=== PATIENT | male | born 1950 | race Caucasian/White ===

== ENCOUNTER → 2023-09-04 15:46 | Outpatient (REF) | payer MEDICARE, SELFPAY | LOC: RAD 15:46 | PROVIDERS: ATTENDING PHYSICIAN Physician Assistant | DX: G89.29 Other chronic pain (principal); M54.50 Low back pain, unspecified | CPT/HCPCS: 72110 ==

== ENCOUNTER → 2023-09-05 09:20 | Outpatient (REF) | payer MEDICARE, SELFPAY | LOC: RCS 09:20 | PROVIDERS: ATTENDING PHYSICIAN Internal Medicine Cardiovascular Disease; FAMILY PHYSICIAN Family Medicine | DX: I25.10 Atherosclerotic heart disease of native coronary artery without angina pectoris (principal); Z01.810 Encounter for preprocedural cardiovascular examination; I48.0 Paroxysmal atrial fibrillation; I10 Essential (primary) hypertension | CPT/HCPCS: 93306 ==

== ENCOUNTER 2023-09-21 11:27 | Emergency (ER) | payer MEDICARE, SELFPAY ==
[2023-09-21 11:30] VITALS: BP 154/77
[2023-09-21] MEDS: OMNIPAQUE 50 ML PO (12:46)
[2023-09-21] MEDS: NSS 1000 IV (12:47)
--- NOTE | 2023-09-21 12:50 | ED.GENMED ---
History of Present Illness
General
Chief Complaint: Abdominal Pain
Source: patient and spouse
Exam Limitations: none
Time Seen by Provider: 09/21/23 12:05
Nursing documentation reviewed up to this point in time: agreed with
Travel History
Have you had any contact with someone who has COVID-19?: No
Do you have any symptoms of coronavirus? Fever > 100 degrees, chills, cough, shortness of breath, sore throat, loss of taste or smell, muscle aches, or headache?: No
History of Present Illness
History of Present Illness:
73 yo male here for abdominal pain. 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 Recent feet swelling and started on Laxix 40 mg daily (on 09/15).
Has had abdominal pain waxing and waning over past month. Was at it's worst this 3 a.m. 02/04, had a non bloody BM, took Pepto Bismol twice with no relief. [place] nauseous, pain was 'all over my abdomen, and I felt it go down both my arms.' This pain
has waxed and waned since and is now /10. No aggravating or relieving factors.
Denies fever, pain does make him nauseous, no vomiting.
Saw GI Dr. Cheung 2 weeks ago, stool cultures neg, ordered upper abd US but can't get in until next month
Past History
Past History
ED Past Medical History: Arrthythmia (Paroxysmal atrial fibrillation) and HTN
ED Past Surgical History: Orthopedic and Tonsilectomy
Social History
Tobacco: Non-smoker
Alcohol: Occasional (Drank 3 alcoholic drinks tonight)
Personal:
Living: with family
Employment: Employed
Family History
Family History: CAD (grandfather)
Review of Systems
Review of Systems
Allergies reviewed?: Yes
All Other Systems: ROS reviewed and negative except as documented in HPI and ROS
Constitutional: Denies fever
Respiratory: Denies trouble breathing
ABD/GI: Reports abdominal pain (lightheaded and nausea only when pain comes); Denies nausea, vomiting, diarrhea, constipated, bloody stools or black stools
Musculoskeletal: Reports no symptoms; Denies edema
Skin: Reports no symptoms
Neurological: Reports no symptoms
Phy Exam
Physical Exam
Physical Exam:
GENERAL: No acute distress. A&Ox3.
CONSTITUTIONAL: Afebrile.
EYES: Clear, conjunctivae normal
ENMT: moist mucus membranes, Pharynx nl
RESPIRATORY: Regular respirations, nonlabored, lungs clear.
CARDIOVASCULAR: Regular rate and rhythm, no murmurs, no rubs.
GI: Soft, nontender, nondistended, normal BS
MUSCULOSKELETAL: Moves with ease. Well perfused.
SKIN: Warm, dry, pink
PSYCH: Normal mood and affect. Well kept, interactive and appropriate
NEUROLOGIC: Awake, alert and oriented. No focal neurological deficits
Course
Orders/Labs/Results
Orders:
Orders
09/21/23
CT Abd/pel W Iv And Oral Contr Urgent
Comment:
Reason For Exam: upper abd pain
09/21/23 11:34
EKG [Electrocardiogram (*1)] Urgent
Reason for Study: Abdominal Pain
EKG- Treatment ONCE
09/21/23 12:39
0.9% Sodium Chloride 1000 ml [Nss] 1,000 ml IV BOLUS
Iohexol [Omnipaque] See Protocol PO NOW STA
US Abdomen Complete/Upper Urgent
Comment:
Reason For Exam: epigastric pain
09/21/23 12:45
Complete Blood Count/With Diff Urgent
Comprehensive Metabolic Panel Urgent
Lipase Urgent
09/21/23 13:00
Troponin I Urgent
09/21/23 17:10
Iohexol [Omnipaque] See Protocol PO NOW STA
09/21/23 18:16
Pantoprazole [Protonix] 40 mg .ROUTE .STK-MED ONE
Pantoprazole [Protonix] 40 mg PO NOW STA
Abnormal Lab Results
09/21/23
12:45
MCH 31.5 H pg
(27.0-31.0)
MPV 10.6 H fL
(7.4-10.4)
Absolute Neuts (auto) 6.6 H 10^3/uL
(1.4-6.5)
Absolute Monos (auto) 0.8 H 10^3/uL
(0.1-0.6)
Neutrophils % 75.8 H %
(42.2-75.2)
Lymphocytes % 14.5 L %
(20.5-51.1)
BUN 24 H mg/dl
(9-20)
Glucose 105 H mg/dl
(70-99)
Total Bilirubin 1.9 H mg/dl
(0.2-1.3)
09/21/23 12:45
09/21/23 12:45
Vital Signs
Initial and Last Documented VS:
Initial Vital Signs
Temp Pulse Resp BP Pulse Ox
98.1 F 71 18 154/77 96
09/21/23 11:30 09/21/23 11:30 09/21/23 11:30 09/21/23 11:30 09/21/23 11:30
Last Documented Vital Signs
Temp Pulse Resp BP Pulse Ox
98.1 F 58 16 133/64 96
09/21/23 11:30 09/21/23 17:20 09/21/23 17:20 09/21/23 17:20 09/21/23 17:20
MDM/Problems Addressed
Differential Diagnosis Includes:
GERD, TN, GB disease, diverticulitis
MDM/Problems Addressed:
73 yo male here for abdominal pain. 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 Recent feet swelling and started on Laxix 40 mg daily (on 09/15).
Has had abdominal pain waxing and waning over past month. Was at it's worst this 3 a.m. 02/04, had a non bloody BM, took Pepto Bismol twice with no relief. [place] nauseous, pain was 'all over my abdomen, and I felt it go down both my arms.' This pain
has waxed and waned since and is now 07/05. No aggravating or relieving factors.
Denies fever, pain does make him nauseous, no vomiting.
Saw GI Dr. Cheung 2 weeks ago, stool cultures neg, ordered upper abd US but can't get in until next month
EKG: NSR, RBBB
2:30 p.m.
CBC: normal
CMP: Mild elevated BUN, Total bilirubin
Troponin: WNL
5:10 PM
Ultrasound result just read: Radiology report read:IMPRESSION: Questionable tiny gallstones. No gallbladder wall thickening or biliary tract dilatation. Negative sonographic Jackson's sign.
2.9 cm simple appearing left renal cyst.
Copy given to pt, all reviewed and questions answered.
Will proceed to CT scan
6:15 PM
CAT scan abdomen pelvis with p.o. and IV contrast radiology report read:IMPRESSION:
Small simple left lobe hepatic cyst.
Small hiatal hernia. Small posterior gastric diverticulum again identified.
Tiny fat only containing umbilical hernia.
Sigmoid diverticulosis.
Small left renal simple cysts.
Copy of report given to patient all questions answered.
He has a follow-up appointment for an endoscopy and a colonoscopy in October with Dr. Villasenor
Rx for pantoprazole daily sent to his pharmacy
*EKG
EKG Intrepretation Date: 09/21/23
Interpretation: abnormal
Rate: normal
Rhythm: sinus
[place]: normal axis
Interval: normal interval
QRS Pattern: right bundle branch block
Ischemia: no ischemia
*Critical Care Note
Total Time (30-74mins, 75-104mins- exclusive of procedures): Not Applicable
ED Attending Note
-
Portions of this chart may have been created with voice recognition software.� Occasional wrong word or��sound alike� substitutions may have occurred due to the inherent limitations of voice recognition software.
Discharge Plan
Departure
Patient Disposition: Home (Routine Discharge)
Date of Disposition: 09/21/23
Time of Disposition: 18:11
Patient with high blood pressure during this ER visit?: No
Condition: Good
Discharge Problem:
Abdominal pain
Instructions: Acid Reflux and GERD in Adults (DC), Abdominal Pain
Prescriptions:
New
pantoprazole 40 mg tablet,delayed release (DR/EC)
40 mg PO DAILY Qty: 30 0RF
No Action
fexofenadine [Pat] 180 MG tablet
180 mg PO DAILY
aspirin 81 MG tablet,delayed release (DR/EC)
81 mg PO DAILY
atorvastatin 40 MG tablet
40 mg PO QPM Qty: 90 3RF
lisinopril 20 MG tablet
40 mg PO DAILY Qty: 90 3RF
nitroglycerin 0.4 MG tablet, sublingual
0.4 mg sublingual [id number] PRN (Reason: chest pain) Qty: 25 3RF
Referrals:
Jose Staples MD [Family Provider] -
Sarah Cheung MD [Active] - Keep scheduled appt
Activity Restrictions/Additional Instructions:
As we discussed, your workup here today shows nothing worrisome. I sent a prescription to your pharmacy for pantoprazole 40 mg to take daily and let Dr. Cheung know if it helps
Keep your appointment for your endoscopy and colonoscopy in October.
Interventions
Interventions:
*Risk Screen - Suicide Last Done: 09/21/23 11:41
*General Assessment Last Done: 09/21/23 11:30
*Neglect/Abuse Screening Last Done: 09/21/23 11:41
ED- Fall Risk Assessment Last Done: 09/21/23 11:41
*ED COVID-19 Vaccine History Last Done: 09/21/23 11:30
*Nursing Disposition Last Done: 09/21/23 18:44
SP-Gbddku-Umoebtjoyh Assessment Last Done: 09/21/23 11:41
Discharge Date and Time
Discharge Date/Time: 09/21/23 19:52
Print Language: [place]
[2023-09-21 12:56] VITALS: BP 147/73
[2023-09-21 13:06] LABS: % Basophils 0.5 % (0-2); % Eosinophils 0.3 % (0-6); % Immature Granulocytes 0.3 % (0-0.5); % Lymphocytes 14.5 % (20.5-51.1); % Monocytes 8.6 % (1.7-9.3); % Neutrophils 75.8 % (42.2-75.2); Absolute Lymphocytes 1.3 10^3/uL (1.2-3.4); Absolute Monocytes 0.8 10^3/uL (0.1-0.6); Absolute Neutrophils 6.6 10^3/uL (1.4-6.5); Hematocrit 42.9 % (39.0-52.0); Hemoglobin 15.2 g/dL (13.0-18.0); Mean Corp Hgb Conc. 35.4 g/dL (33.0-37.0); Mean Corpuscular Hgb 31.5 pg (27.0-31.0); Mean Platelet Volume 10.6 fL (7.4-10.4); Nucleated Red Blood Cells % 0 % (-); Platelet Count 240 10^3/uL (130-400); Red Blood Cell Count 4.82 10^6/uL (4.70-6.10); White Blood Cell Count 8.8 10^3/uL (4.8-10.8)
[2023-09-21 13:26] LABS: ALT (SGPT) 26 U/L (0-50); AST (SGOT) 29 U/L (17-59); Albumin 4.3 g/dl (3.5-5.0); Alkaline Phosphatase 44 U/L (38-126); Blood Urea Nitrogen 24 mg/dl (9-20); Calcium 9.5 mg/dl (8.4-10.2); Carbon Dioxide 29 mmol/L (22-30); Chloride 101 mmol/L (98-107); Glucose 105 mg/dl (70-99); Lipase 240 U/L (23-300); Potassium 4.7 mmol/L (3.5-5.1); Sodium 136 mmol/L (135-145); Total Bilirubin 1.9 mg/dl (0.2-1.3); Total Protein 6.8 g/dl (6.3-8.2); eGFR > 60.00
[2023-09-21 13:37] LABS: Troponin I 0.025 ng/ml
[2023-09-21 14:54] VITALS: BP 142/72
[2023-09-21 17:20] VITALS: BP 133/64
[2023-09-21] MEDS: PROTONIX 40 MG PO (18:19)
== END 2023-09-21 19:52 | disposition home or self-care (01) ==
LOC: EMR 11:27
PROVIDERS: Registered Nurse; EMERGENCY PHYSICIAN Emergency Medicine; FAMILY PHYSICIAN Family Medicine
DX: R10.9 Unspecified abdominal pain (principal); R11.0 Nausea; R42 Dizziness and giddiness; I45.10 Unspecified right bundle-branch block; N28.1 Cyst of kidney, acquired; K44.9 Diaphragmatic hernia without obstruction or gangrene; K42.9 Umbilical hernia without obstruction or gangrene; K57.30 Diverticulosis of large intestine without perforation or abscess without bleeding; K31.4 Gastric diverticulum; I10 Essential (primary) hypertension; K76.89 Other specified diseases of liver; I48.0 Paroxysmal atrial fibrillation; Z79.82 Long term (current) use of aspirin; Z95.5 Presence of coronary angioplasty implant and graft; Z85.89 Personal history of malignant neoplasm of other organs and systems; Z98.0 Intestinal bypass and anastomosis status; Z88.6 Allergy status to analgesic agent; Z88.1 Allergy status to other antibiotic agents; Z88.5 Allergy status to narcotic agent
CPT/HCPCS: 99285; 96360; 74177; 76700; 80053; 83690; 84484; 85025; 93005; Q9967

== ENCOUNTER → 2023-10-02 06:25 | Day surgery (SDC) | payer MEDICARE, SELFPAY | LOC: GI 06:25 | PROVIDERS: ATTENDING PHYSICIAN Internal Medicine Gastroenterology | DX: K57.30 Diverticulosis of large intestine without perforation or abscess without bleeding (principal); K64.8 Other hemorrhoids; K52.9 Noninfective gastroenteritis and colitis, unspecified; R10.13 Epigastric pain; K31.89 Other diseases of stomach and duodenum; D12.3 Benign neoplasm of transverse colon; K29.50 Unspecified chronic gastritis without bleeding; Z98.0 Intestinal bypass and anastomosis status | CPT/HCPCS: 45380; 43239; 88305; 88342 ==

== ENCOUNTER → 2024-02-17 11:43 | Outpatient (REF) | payer MEDICARE, SELFPAY | LOC: DHCBC/DCA 11:43 | PROVIDERS: ATTENDING PHYSICIAN Internal Medicine Cardiovascular Disease; FAMILY PHYSICIAN Family Medicine | DX: Z01.810 Encounter for preprocedural cardiovascular examination (principal); I25.10 Atherosclerotic heart disease of native coronary artery without angina pectoris; I48.0 Paroxysmal atrial fibrillation | CPT/HCPCS: 78452; 93017; A9500 ==

== ENCOUNTER → 2024-03-05 08:24 | Outpatient (REF) | payer MEDICARE, SELFPAY | LOC: RCS 08:24 | PROVIDERS: ATTENDING PHYSICIAN Internal Medicine Cardiovascular Disease; FAMILY PHYSICIAN Family Medicine; REFERRING PHYSICIAN Family Medicine | DX: Z01.810 Encounter for preprocedural cardiovascular examination (principal); I10 Essential (primary) hypertension; I25.10 Atherosclerotic heart disease of native coronary artery without angina pectoris; I48.0 Paroxysmal atrial fibrillation; Z02.89 Encounter for other administrative examinations | CPT/HCPCS: 93225; 93226 ==